=== PATIENT | male | born 1975 | race Caucasian/White ===

== ENCOUNTER 2021-05-07 23:32 | Emergency (ER) | payer OTHER ==
[~2021-05-07] VITALS: Ht 162.6 cm; Wt 65.8 kg
[2021-05-08 00:35] VITALS: BP 151/109
[2021-05-08] MEDS ORDERED: NAPROXEN 500 MG TAB PO ONE (00:40)
[2021-05-08 00:58] LABS: BASOPHILS # (AUTO) 0.5 K/uL (0.00-0.22); EOSINOPHILS # (AUTO) 0.1 K/uL (0-0.4); EOSINOPHILS % (AUTO) 2.8 % (0.0-4.0); HEMATOCRIT 44.5 % (36-52); HEMOGLOBIN 15.6 g/dL (12.0-18.0); LYMPHOCYTES # (AUTO) 1.1 K/uL (2.0-11.5); LYMPHOCYTES % (AUTO) 28.4 % (20.5-51.1); MEAN CORPUSCULAR HEMOGLOBIN 31 pg (27-31); MEAN CORPUSCULAR HGB CONC 35 g/dL (33-37); MEAN CORPUSCULAR VOLUME 88.2 fL (80-94); MONOCYTES # (AUTO) 0.4 K/uL (0.8-1.0); MONOCYTES % (AUTO) 10.7 % (1.7-9.3); NEUTROPHILS # (AUTO) 1.9 K/uL (1.8-7.7); NEUTROPHILS % (AUTO) 46.4 % (42.2-75.2); PLATELET COUNT (AUTO) 200 K/uL (140-450); RED BLOOD CELL COUNT(AUTO) 5.04 MIL/uL (4.20-6.10); RED CELL DISTRIBUTION WIDTH 13.1 % (11.6-13.7)
[2021-05-08 00:59] LABS: BASOPHILS % (AUTO) 11.7 % (0.0-2.0)
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
[2021-05-08 01:26] LABS: ALBUMIN 3.8 g/dL (3.4-5.0); CARBON DIOXIDE 24.3 mmol/L (21-32); CREATININE 0.8 mg/dL (0.6-1.3); POTASSIUM 3.3 mmol/L (3.5-5.1); TOTAL BILIRUBIN 0.3 mg/dL (0.0-1.0)
[2021-05-08] MEDS ORDERED: POTASSIUM CHLORIDE 10 MEQ TABER PO ONE (01:35)
[2021-05-08] MEDS ORDERED: NAPR-54 PO (01:39)
[2021-05-08 01:58] VITALS: BP 149/101
== END 2021-05-08 01:58 | disposition home or self-care (01) ==
LOC: MED 23:32
DX: R07.89 Other chest pain (principal); E87.6 Hypokalemia; I10 Essential (primary) hypertension; F17.210 Nicotine dependence, cigarettes, uncomplicated; Z79.899 Other long term (current) drug therapy; Z71.6 Tobacco abuse counseling
CPT/HCPCS: 36415; 71045; 80053; 84484; 85025; 93005; 99285